=== PATIENT | female | born 1955 | race Caucasian/White ===

== ENCOUNTER → 2016-12-05 | Outpatient (REF) | payer BC ==
[2016-12-09 00:07] LABS: L PNEUMOPHILIA 1-6 IgG <1:128 (<1:128); L PNEUMOPHILIA 1-6 IgM < 1:16 (< 1:16)
== END | disposition home or self-care (01) ==
LOC: M LAB REF 16:43
PROVIDERS: ATTEND Nurse Practitioner Adult Health
DX: J44.1 Chronic obstructive pulmonary disease with (acute) exacerbation (principal)

== ENCOUNTER → 2017-06-29 | Outpatient (CLI) | payer BC ==
--- NOTE | 2017-06-29 12:42 | REPMRS ---
Patient History The patient states she had a clinical breast exam in 07/12 Patient is postmenopausal. No known family history of cancer. Digital Woman Screen Mammo: June 29, 2017 - Exam #: [id number] Bilateral CC and MLO view(s) were taken. Technologist: Kaya Sheth, Technologist Prior study comparison: November 12, 2015, digital woman screen mammo performed at [facility]. November 06, 2014, digital woman screen mammo performed at [facility]. FINDINGS: There are scattered fibroglandular densities. There has been no change in the appearance of the mammogram from the prior studies. There is a mild amount of residual fibroglandular tissue which is fairly symmetric. There is no interval development of dominant mass, architectural distortion, or clustered microcalcification suggestive of malignancy. Scattered lymph nodes are seen in the axillae. No significant changes when compared with prior studies. ASSESSMENT: BI-RADS/ACR category 2 mammogram. Benign finding(s). Recommendation Routine screening mammogram in 1 year (for women over age 40). This mammogram was interpreted with the aid of an FDA-approved computer-aided dectection system. A. Negative x-ray reports should not delay biopsy if a dominant or clinically suspicious mass is present. B. Four to eight percent of cancers are not identified by mammography. C. Adenosis and dense breast may obscure an underlying neoplasm. Electronically Signed By: Jose J Marie MD 06/29/17 [id number]
== END ==
LOC: M WHC 10:35
PROVIDERS: ATTEND Nurse Practitioner Family
DX: Z12.31 Encounter for screening mammogram for malignant neoplasm of breast (principal)

== ENCOUNTER → 2017-06-29 | Outpatient (REF) | payer BC | LOC: M SFHCWAGY 11:29 | PROVIDERS: ATTEND Nurse Practitioner Family | DX: Z12.4 Encounter for screening for malignant neoplasm of cervix (principal); Z12.31 Encounter for screening mammogram for malignant neoplasm of breast ==

== ENCOUNTER → 2018-02-21 | Outpatient (CLI) | payer BC | LOC: M SLEEP 19:35 | DX: R06.83 Snoring (principal) | CPT/HCPCS: 95810 ==

== ENCOUNTER → 2018-05-16 | Outpatient (CLI) | payer BC ==
[2018-05-23 00:06] LABS: ASPERGILLUS FUMIGATUS AB Negative (Negative); AUREOBASIDIUM PULLULANS Negative (Negative); MICROPOLYSPORA FAENI AB Negative (Negative); PIGEON SERUM AB Negative (Negative); THERMOACTINOMYCES SACCHARI Negative (Negative); THERMOACTINOMYCES VULGARIS Negative (Negative)
== END ==
LOC: M SMT 10:55
DX: J45.909 Unspecified asthma, uncomplicated (principal); J41.8 Mixed simple and mucopurulent chronic bronchitis; R05 Cough
CPT/HCPCS: 86606

== ENCOUNTER → 2018-07-05 | Outpatient (CLI) | payer BC | LOC: M WHC 09:33 | DX: Z12.31 Encounter for screening mammogram for malignant neoplasm of breast (principal); Z78.0 Asymptomatic menopausal state | CPT/HCPCS: 77067 ==

== ENCOUNTER → 2020-04-27 | Outpatient (CLI) | payer BC ==
--- NOTE | 2020-04-27 19:17 | REP ---
Clinical: Hepatic steatosis. Technique: Real time marinelli scale ultrasound examination using curved array transducer. Findings: The liver is increased echogenicity with poor through transmission suggesting fatty infiltration. No focal hepatic lesion identified. Spleen is normal in appearance and size measuring 10.4 x 3.8 x 9.1 cm. The pancreas is incompletely evaluated due to interposed bowel gas but visualized portions appear normal. The gallbladder is normal and without gallstones, wall thickening, or pericholecystic fluid. No biliary ductal dilatation is appreciated and the common bile duct measures 4.7 mm diameter. Right kidney measures 10.0 x 5.6 x 4.9 cm with mild hydronephrosis and possible 3.4 cm mass versus cortical lobulation. Left kidney measures 8.4 x 5.0 x 5.2 cm without hydronephrosis or abnormality. Abdominal aorta measures 1.8 cm maximal diameter. No ascites. Impression: 1. Hepatic steatosis. 2. Right kidney demonstrates mild hydronephrosis and possible 3.4 cm mass. Pre and postcontrast CT of the abdomen is recommended for further investigation. Electronically Signed by Jose Rabago MD 04/27/2020 07:07 P
== END ==
LOC: M RAD 07:54
PROVIDERS: ATTEND Internal Medicine Gastroenterology
DX: K76.0 Fatty (change of) liver, not elsewhere classified (principal); N13.30 Unspecified hydronephrosis

== ENCOUNTER → 2021-06-23 | Outpatient (REF) | payer BC, MEDICARE ==
[~2021-06-23] MED LIST: CITA40TA4 PO; INCR1INH INH; LEVA45AE INH; METF500T13 PO; VITMTA PO
== END ==
LOC: M SFHCWAGY 13:48
PROVIDERS: ATTEND Nurse Practitioner Women's Health
DX: Z11.51 Encounter for screening for human papillomavirus (HPV) (principal)
CPT/HCPCS: 87624; G0123

== ENCOUNTER → 2021-06-23 | Outpatient (CLI) | payer BC, MEDICARE ==
--- NOTE | 2021-06-23 11:06 | REP ---
INDICATION: RHONA SCR MAMMO Z12.31. COMPARISON: Multiple the only prior DBT 07/05/2018 and the latest prior exam for comparison TECHNIQUE: Digital screening mammography was carried out bilaterally in the CC and MLO projections compared to the prior exams. By history, the patient no complaints of a palpable breast abnormality or other significant breast complaints. FINDINGS: The breasts are unchanged in size and shape. There is a stable benign calcifications seen in the left breast retroareolar region. There is a potential shannan density seen in the left breast inner aspect near the 9 o'clock position. No other suspicious features are seen in either breast. Scattered dense heterogenous fibroglandular elements are again seen bilaterally. There is no skin thickening or nipple retraction. The Volpara volumetric breast density pattern is b. IMPRESSION: BIRADS/ACR category 0 mammogram potential shannan density seen in the left breast near the 9 o'clock position and for which diagnostic digital DBT spot compression views are recommended in the CC and MLO projections. This patient's Tyrer-Cuzick lifetime breast cancer risk assessment score is 4.7 %. This mammogram was interpreted with the aid of an FDA-approved computer-aided detection system. The patient states she had a clinical breast exam in May 2021. The patient letter being requested is M0 RECOMMENDATION: As above <Electronically signed by Krishna Zavala > 06/23/21 [id number]
== END ==
LOC: M WHC 08:48
PROVIDERS: ATTEND Nurse Practitioner Women's Health
DX: Z12.31 Encounter for screening mammogram for malignant neoplasm of breast (principal)

== ENCOUNTER → 2021-07-02 | Outpatient (CLI) | payer BC | LOC: M LABSMTC 10:31 | PROVIDERS: ATTEND Anesthesiology | DX: Z01.812 Encounter for preprocedural laboratory examination (principal); Z11.52 Encounter for screening for COVID-19 ==

== ENCOUNTER 2021-07-07 07:08 | Day surgery (SDC) | payer MEDICARE, BC ==
[~2021-07-07] VITALS: Ht 157.5 cm; Wt 81.8 kg
[~2021-07-07 07:08] MED LIST changes: +LIDOCAINE 2% 100MG/5ML SDV (FOR ANES.) As Ordered ONE; +NS 1,000 ML IV ONE; +fentaNYL 100 MCG/2 ML INJECTION (J3010) As Ordered ONE; +propofoL 200 MG/20 ML VIAL As Ordered ONE
[2021-07-07] MEDS ORDERED: ePHEDrine SULFATE 25 MG/5 ML(5MG/ML) SYRINGE As Ordered ONE (08:50)
--- NOTE | 2021-07-07 08:57 | ROOR ---
Patient Name: Madiha Mayes Procedure Date: 07/07/2021 8:04 AM Date of : 1955 Age: 66 Room: [facility] Gender: Female Note Status: Finalized Procedure: Upper GI endoscopy Indications: Dyspepsia Providers: Warner Kelsey MD Referring MD: Mark Galarza MD Requesting Provider: Medicines: Monitored Anesthesia Care Complications: No immediate complications. Procedure: Pre-Anesthesia Assessment: - Prior to the procedure, a History and Physical was performed, and patient medications and allergies were reviewed. The patient is competent. The risks and benefits of the procedure and the sedation options and risks were discussed with the patient. All questions were answered and informed consent was obtained. Patient identification and proposed procedure were verified by the physician, the nurse and the anesthesiologist in the procedure room. Mental Status Examination: alert and oriented. Airway Examination: normal oropharyngeal airway and neck mobility. Respiratory Examination: clear to auscultation. CV Examination: normal. Prophylactic Antibiotics: The patient does not require prophylactic antibiotics. Prior Anticoagulants: The patient has taken no previous anticoagulant or antiplatelet agents. ASA Grade Assessment: III - A patient with severe systemic disease. After reviewing the risks and benefits, the patient was deemed in satisfactory condition to undergo the procedure. The anesthesia plan was to use monitored anesthesia care (MAC). Immediately prior to administration of medications, the patient was re-assessed for adequacy to receive sedatives. The heart rate, respiratory rate, oxygen saturations, blood pressure, adequacy of pulmonary ventilation, and response to care were monitored throughout the procedure. The physical status of the patient was re-assessed after the procedure. The Endoscope was introduced through the mouth, and advanced to the second part of duodenum. Findings: The examined esophagus was normal. The Z-line was regular and was found at the gastroesophageal junction. Scattered moderate inflammation characterized by erosions, erythema and granularity was found in the gastric antrum. Biopsies were taken with a cold forceps for Helicobacter pylori testing. Verification of patient identification for the specimen was done by the physician and nurse using the patient's name, date and medical record number. Estimated blood loss was minimal. The duodenal bulb and second portion of the duodenum were normal. Impression: - Normal esophagus. - Z-line regular, at the gastroesophageal junction. - Gastritis. Biopsied. - Normal duodenal bulb and second portion of the duodenum. Recommendation: - Patient has a contact number available for emergencies. The signs and symptoms of potential delayed complications were discussed with the patient. Return to normal activities tomorrow. Written discharge instructions were provided to the patient. - High fiber diet. - Continue present medications. - Await pathology results. 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 - Follow an antireflux regimen. - Telephone GI clinic for pathology results in 2 weeks. - Return to primary care physician in 2 weeks. Procedure Code(s): --- Professional --- 05432, Esophagogastroduodenoscopy, flexible, transoral; with biopsy, single or multiple Diagnosis Code(s): --- Professional --- K29.70, Gastritis, unspecified, without bleeding R10.13, Epigastric pain CPT copyright 2019 [employer]. All rights reserved. The codes documented in this report are preliminary and upon factory engineer review may be revised to meet current compliance requirements. Warner Kelsey MD Warner Kelsey MD 07/07/2021 8:57:36 AM Electronically signed by Warner Kelsey MD Number of Addenda: 0 Note Initiated On: 07/07/2021 8:04 AM Estimated Blood Loss: Estimated blood loss was minimal.
[2021-07-07 09:40] VITALS: BP 116/57
--- NOTE | 2021-07-07 09:42 | ROOR ---
Patient Name: Madiha Mayes Procedure Date: 07/07/2021 8:05 AM Date of : 1955 Age: 66 Room: [facility] Gender: Female Note Status: Finalized Procedure: Colonoscopy Indications: Screening for colorectal malignant neoplasm Providers: Warner Kelsey MD Referring MD: Mark Galarza MD Requesting Provider: Medicines: Monitored Anesthesia Care Complications: No immediate complications. Procedure: Pre-Anesthesia Assessment: - Prior to the procedure, a History and Physical was performed, and patient medications and allergies were reviewed. The patient is competent. The risks and benefits of the procedure and the sedation options and risks were discussed with the patient. All questions were answered and informed consent was obtained. Patient identification and proposed procedure were verified by the physician, the nurse and the anesthesiologist in the procedure room. Mental Status Examination: alert and oriented. Airway Examination: normal oropharyngeal airway and neck mobility. Respiratory Examination: clear to auscultation. CV Examination: normal. Prophylactic Antibiotics: The patient does not require prophylactic antibiotics. Prior Anticoagulants: The patient has taken no previous anticoagulant or antiplatelet agents. ASA Grade Assessment: II - A patient with mild systemic disease. After reviewing the risks and benefits, the patient was deemed in satisfactory condition to undergo the procedure. The anesthesia plan was to use monitored anesthesia care (MAC). Immediately prior to administration of medications, the patient was re-assessed for adequacy to receive sedatives. The heart rate, respiratory rate, oxygen saturations, blood pressure, adequacy of pulmonary ventilation, and response to care were monitored throughout the procedure. The physical status of the patient was re-assessed after the procedure. The Colonoscope was introduced through the anus and advanced to the terminal ileum, with identification of the appendiceal orifice and IC valve. The colonoscopy was performed without difficulty. The patient tolerated the procedure well. The quality of the bowel preparation was adequate to identify polyps 6 mm and larger in size and fair. The terminal ileum, ileocecal valve, appendiceal orifice, and rectum were photographed. Scope insertion time was 3 minutes. Scope withdrawal time was 9 minutes. The total duration of the procedure was 12 minutes. Findings: The perianal and digital rectal examinations were normal. The terminal ileum appeared normal. Five sessile polyps were found in the recto-sigmoid colon, transverse colon and ascending colon. The polyps were 5 to 9 mm in size. These polyps were removed with a cold snare. Resection and retrieval were complete. Verification of patient identification for the specimen was done by the physician and nurse using the patient's name, date and medical record number. Estimated blood loss was minimal. Non-bleeding external and internal hemorrhoids were found during retroflexion. The hemorrhoids were medium-sized. Impression: - Preparation of the colon was fair. - The examined portion of the ileum was normal. - Five 5 to 9 mm polyps at the recto-sigmoid colon, in the transverse colon and in the ascending colon, removed with a cold snare. Resected and retrieved. - Non-bleeding external and internal hemorrhoids. Recommendation: - Patient has a contact number available for emergencies. The signs and symptoms of potential delayed complications were discussed with the patient. Return to normal activities tomorrow. Written discharge instructions were provided to the patient. - High fiber diet. - Continue present medications. - Await pathology results. - Repeat colonoscopy in 3 - 5 years for surveillance based on pathology results. - Telephone GI clinic for pathology results in 2 weeks. - Return to primary care physician. Procedure Code(s): --- Professional --- 87088, Colonoscopy, flexible; with removal of tumor(s), polyp(s), or other lesion(s) by snare technique Diagnosis Code(s): --- Professional --- Z12.11, Encounter for screening for malignant neoplasm of colon K64.8, Other hemorrhoids K63.5, Polyp of colon CPT copyright 2019 [employer]. All rights reserved. The codes documented in this report are preliminary and upon aircraft maintenance supervisor review may be revised to meet current compliance requirements. Warner Kelsey MD Warner Kelsey MD 07/07/2021 9:41:52 AM Electronically signed by Warner Kelsey MD Number of Addenda: 0 Note Initiated On: 07/07/2021 8:05 AM Estimated Blood Loss: Estimated blood loss was minimal.
== END 2021-07-07 09:35 | disposition home or self-care (01) ==
LOC: M OPP 07:08
PROVIDERS: ATTEND Internal Medicine Gastroenterology
DX: Z12.11 Encounter for screening for malignant neoplasm of colon (principal); Z80.0 Family history of malignant neoplasm of digestive organs; Z80.1 Family history of malignant neoplasm of trachea, bronchus and lung; Z80.51 Family history of malignant neoplasm of kidney; K63.5 Polyp of colon; K64.8 Other hemorrhoids; K29.70 Gastritis, unspecified, without bleeding; R10.13 Epigastric pain; J44.9 Chronic obstructive pulmonary disease, unspecified; Z79.84 Long term (current) use of oral hypoglycemic drugs; Z79.899 Other long term (current) drug therapy
CPT/HCPCS: 43239; 45385; 88305; J3010

== ENCOUNTER → 2021-07-12 | Outpatient (CLI) | payer MEDICARE, BC ==
[~2021-07-12] MED LIST changes: -LIDOCAINE 2% 100MG/5ML SDV (FOR ANES.) As Ordered ONE; -NS 1,000 ML IV ONE; -fentaNYL 100 MCG/2 ML INJECTION (J3010) As Ordered ONE; -propofoL 200 MG/20 ML VIAL As Ordered ONE
--- NOTE | 2021-07-12 10:22 | REP ---
INDICATION: ADDITIONAL VIEWS LT BREAST. COMPARISON: . Prior screening examination of 06/23/2021 is the latest prior TECHNIQUE: Diagnostic digital DBT spot compression views of the left breast were obtained in the CC and MLO projections over the region of interest seen on the prior screening exam. FINDINGS: The small shannan density suspected in the left breast inner aspect near the 9 o'clock position has compressed out to normal breast parenchyma. There are no abnormalities. IMPRESSION: BIRADS/ACR category 1 negative mammogram. This mammogram was interpreted with the aid of an FDA-approved computer-aided detection system. The patient letter being requested is M1. RECOMMENDATION: Repeat screening mammography recommended 1 year (for women over 40). <Electronically signed by Krishna Zavala > 07/12/21 101
== END ==
LOC: M WHC 09:24
PROVIDERS: ATTEND Nurse Practitioner Women's Health
DX: Z12.31 Encounter for screening mammogram for malignant neoplasm of breast (principal); N64.9 Disorder of breast, unspecified

== ENCOUNTER → 2023-02-22 | Outpatient (CLI) | payer MEDICARE, BC ==
[~2023-02-22] MED LIST changes: -CITA40TA4 PO; +CITA40TA7 PO
== END ==
LOC: M WHC 09:10
PROVIDERS: ATTEND Internal Medicine Gastroenterology
DX: K76.0 Fatty (change of) liver, not elsewhere classified (principal)